=== PATIENT | female | born 1985 | race Asian ===

== ENCOUNTER 2018-08-13 10:15 | Emergency (ER) | payer OTHER ==
[~2018-08-13] VITALS: Ht 162.6 cm; Wt 74.8 kg
[2018-08-13 10:44] VITALS: BP_SYST 134
[2018-08-13 11:19] LABS: BILIRUBIN,URINE NEGATIVE (NEGATIVE); BLOOD, URINE NEGATIVE (NEGATIVE); CLARITY/URINE SL HAZY (CLEAR); COLOR,URINE YELLOW (YELLOW); GLUCOSE,URINE NEGATIVE (NEGATIVE); KETONES,URINE NEGATIVE (NEGATIVE); LEUKOCYTE ESTERASE ,URINE NEGATIVE (NEGATIVE); NITRITE, URINE NEGATIVE (NEGATIVE); PH,URINE 6.5 (5.0-8.0); PROTEIN URINE NEGATIVE (NEGATIVE); UROBILINOGEN,URINE 0.2 (0.2-1.0)
[2018-08-13 12:55] VITALS: BP_SYST 132
== END 2018-08-13 12:57 | disposition home or self-care (01) ==
LOC: SED 10:15
DX: J03.90 Acute tonsillitis, unspecified (principal)
CPT/HCPCS: 81003; 81025; 99283